=== PATIENT | male | born 2000 | race Caucasian/White ===

== ENCOUNTER 2022-01-29 11:59 | Emergency (ER) | payer OTHER ==
[~2022-01-29 11:59] MED LIST: IBUPROFEN800 MG PO; NORCO 7.5-3251 EACH PO; PERCOCET 7.5-31 EACH PO; ZITHROMAX250 MG PO
[2022-01-29 13:39] LABS: HEMOGLOBIN 14.1 gm/dl (14.0-17.5); RED BLOOD COUNT 4.62 M/UL (4.20-5.50)
[2022-01-29 14:07] LABS: BUN/CREATININE RATIO 13 (0-10)
== END 2022-01-29 16:48 | disposition home or self-care (01) ==
LOC: ER1 11:59
PROVIDERS: Physician Assistant
DX: R06.00 Dyspnea, unspecified (principal); J06.9 Acute upper respiratory infection, unspecified
CPT/HCPCS: 71045; 80053; 85025; 85379; 93005; 99285; Q9967

== ENCOUNTER → 2022-05-03 | Outpatient (CLI) | payer OTHER | LOC: US 13:30 | DX: R13.10 Dysphagia, unspecified (principal); R91.1 Solitary pulmonary nodule | CPT/HCPCS: 76536 ==